=== PATIENT | male | born 1985 | race Caucasian/White ===

== ENCOUNTER 2018-01-05 06:06 | Day surgery (SDC) | payer OTHER ==
[~2018-01-05 06:06] MED LIST: Lactated Ringers 1,000 ML IV SCH; Lidocaine 1%/Sod Bicarbonate in NS 8.4% 1 ML Syringe IV PRN; Sodium Chloride 0.9% 10 ML Syringe FLUSH PRN
[2018-01-05] MEDS ORDERED: Propofol 200 MG/20 ML SDV ONE (06:26)
[2018-01-05] MEDS ORDERED: Ondansetron 4 MG/2 ML SDV ONE (06:26)
[2018-01-05] MEDS ORDERED: Midazolam 1 MG/ML 2 ML SDV ONE (06:27)
[2018-01-05] MEDS ORDERED: Lidocaine 1% 4 ML ONE (06:27)
[2018-01-05] MEDS ORDERED: fentaNYL 250 MCG/5 ML SDV ONE (06:27)
--- NOTE | 2018-01-05 06:34 | PCM.PREANE ---
Preanesthetic Assessment - Anesthesia/Transfusion/Family Hx Anesthesia History: Prior Anesthesia Without Reaction Family History of Anesthesia Reaction: No Transfusion History: No Prior Transfusion(s) - Review of Systems General: No Symptoms Pulmonary: No Symptoms Cardiovascular: No Symptoms Gastrointestinal: No Symptoms Neurological: No Symptoms Other: Reports: None - Physical Assessment NPO Status Date: 01/04/18 NPO Status Time: 00:00 Pulse: 67 O2 Sat by Pulse Oximetry: 99 Respiratory Rate: 16 Blood Pressure: 133/80 Temperature: 36.5 C Height: 1.8 m Weight: 89.584 kg ASA Class: 2 Mental Status: Alert & Oriented x3 Airway Class: Mallampati = 1 Dentition: Reports: Normal Dentition Thyro-Mental Finger Breadths: 3 Mouth Opening Finger Breadths: 3 ROM/Head Extension: Full Lungs: Clear to Auscultation, Normal Respiratory Effort Cardiovascular: Regular Rate, Regular Rhythm - Allergies Allergies/Adverse Reactions: Allergies Allergy/AdvReac Type Severity Reaction Status Date / Time No Known Allergies Allergy Verified 01/04/18 15:10 - Blood Blood Available: No Product(s) Available: None - Anesthesia Plan Pre-Op Medication Ordered: None - Acknowledgements Anesthesia Type Planned: General Anesthesia Pt an Appropriate Candidate for the Planned Anesthesia: Yes Alternatives and Risks of Anesthesia Discussed w Pt/Guardian: Yes Pt/Guardian Understands and Agrees with Anesthesia Plan: Yes PreAnesthesia Questionnaire - Past Health History Medical/Surgical History: Denies Medical/Surgical History Cardiovascular History: Reports: None Respiratory History: Reports: None Gastrointestinal History: Reports: None Genitourinary History: Reports: None APPRENTICE ARCHITECT History: Reports: None Musculoskeletal History: Reports: Other (See Below) Other Musculoskeletal History: wrist surgery, finger fracture, left wrist sacpholumate liganment reconstruction Neurological History: Reports: None Psychiatric History: Reports: Anxiety, Depression Endocrine/Metabolic History: Reports: None Hematologic History: Reports: None Immunologic History: Reports: None Oncologic (Cancer) History: Reports: None Dermatologic History: Reports: Other (See Below) Other Dermatologic History: acne - Past Surgical History Head Surgeries/Procedures: Reports: None HEENT Surgical History: Reports: Oral Surgery Cardiovascular Surgical History: Reports: None Respiratory Surgical History: Reports: None GI Surgical History: Reports: None Female Surgical History: Reports: None Male Surgical History: Reports: None Endocrine Surgical History: Reports: None Neurological Surgical History: Reports: None Oncologic Surgical History: Reports: None - SUBSTANCE USE Smoking Status *Q: Current Every Day Smoker Tobacco Use Within Last Twelve Months: Cigarettes Second Hand Smoke Exposure: No Days Per Week of Alcohol Use: 7 Number of Drinks Per Day: 15 Total Drinks Per Week: 105 Recreational Drug Use History: No Recreational Drug Type: Recreational Drug Last Use: 04/19 - HOME MEDS Home Medications: Home Meds buPROPion [Wellbutrin SR] 150 mg PO Q48H 10/15/15 [History] Acetaminophen [Tylenol Extra Strength] 1,000 mg PO Q6H PRN 01/04/18 [History] Famciclovir [Famciclovir] 250 mg PO BID 01/04/18 [History] Minocycline HCl 100 mg PO DAILY 01/04/18 [History] hydrOXYzine HCl [hydrOXYzine] 25 mg PO TID PRN 01/04/18 [History] - CURRENT (IN HOUSE) MEDS Current Meds: Current Medications Lactated Ringer's (Ringers, Lactated) 1,000 mls @ 125 mls/hr IV ASDIRECTED THOMAS Stop: 01/05/18 23:00 Lidocaine/Sodium Bicarbonate (Buffered Lidocaine 1% In Ns 8.4%) 0.25 ml IV ONETIME PRN PRN Reason: Prior to IV Start Stop: 01/05/18 18:00 Sodium Chloride (Saline Flush) 10 ml FLUSH ASDIRECTED PRN PRN Reason: Keep Vein Open Stop: 01/05/18 18:00 Discontinued Medications Bupivacaine HCl (Marcaine 0.25%) Confirm Administered Dose 30 ml .ROUTE .STK- MED ONE Stop: 01/05/18 06:14 Fentanyl (Sublimaze) Confirm Administered Dose 250 mcg .ROUTE .STK-MED ONE Stop: 01/05/18 06:28 Lidocaine HCl (Xylocaine-Mpf 1%) Confirm Administered Dose 4 mls @ as directed .ROUTE .STK-MED ONE Stop: 01/05/18 06:28 Midazolam HCl (Versed 1 Mg/Ml) Confirm Administered Dose 2 mg .ROUTE .STK-MED ONE Stop: 01/05/18 06:28 Ondansetron HCl (Zofran) Confirm Administered Dose 4 mg .ROUTE .STK-MED ONE Stop: 01/05/18 06:27 Propofol (Diprivan 20 Ml) Confirm Administered Dose 200 mg .ROUTE .[facility]-MED ONE Stop: 01/05/18 06:27
[2018-01-05] MEDS ORDERED: ceFAZolin 1 GM Vial ONE (06:57)
[2018-01-05] MEDS: Bupivacaine 0.25% 30 ML SDV ONE ×2 (07:27→07:50)
[2018-01-05] MEDS ORDERED: Lactated Ringers 1,000 ML ONE (07:31)
[2018-01-05] MEDS ORDERED: Ketorolac 30 MG/ML SDV IVPUSH PRN (08:19)
[2018-01-05] MEDS ORDERED: fentaNYL 100 MCG/2 ML SDV IVPUSH PRN (08:19)
[2018-01-05] MEDS ORDERED: HYDROmorphone 0.5 MG/0.5 ML Syringe IVPUSH PRN (08:19)
--- NOTE | 2018-01-05 08:21 | PCM.POSTAN ---
POST ANESTHESIA ASSESSMENT - MENTAL STATUS Mental Status: Alert, Oriented - VITAL SIGNS Pulse Rate: 106 SaO2: 96 Resp Rate: 16 Blood Pressure: 143/80 Temperature: 37.1 C - RESPIRATORY Respiratory Status: Respiratory Rate WNL, Airway Patent, O2 Saturation Stable, Supplemental Oxygen - CARDIOVASCULAR CV Status: Pulse Rate WNL, Blood Pressure Stable - GASTROINTESTINAL GI Status: No Symptoms - PAIN Pain Score: 4 - POST OP HYDRATION Hydration Status: Adequate & Stable - OBSERVATIONS Free Text/Narrative:: no anesthesia complications noted
--- NOTE | 2018-01-05 08:36 | PCM.OPNOTE ---
- General Post-Op/Procedure Note Date of Surgery/Procedure: 01/05/18 Operative Procedure(s): open reduction internal fixation of left fourth metacarpal shaft fracture Pre Op Diagnosis: closed left fourth metacarpal shaft fracture Post-Op Diagnosis: Same Anesthesia Technique: General LMA, Local Primary Surgeon: Facundo Medeiros Anesthesia Provider: Isreal Murrieta [employer] Delivery: Sofia Crowley EBL in mLs: 5 Complications: None Condition: Good
--- NOTE | 2018-01-05 08:54 | CR ---
Left fourth finger: Ten fluoroscopic spot views were obtained utilizing C-arm device of the fourth metacarpal. Study shows a fracture within the shaft of the metacarpal. Reduction is seen during the study as well as fixation with plate and screws. Soft tissue swelling is noted. Fluoroscopy time given as 28.9 seconds. Impression: 1. Operative study as described above. Diagnostic code #2
--- NOTE | 2018-01-05 09:16 | OR ---
DATE OF OPERATION: 01/05/2018 SURGEON: Facundo Medeiros MD OPERATION PERFORMED: Open reduction and internal fixation of left 4th metacarpal shaft fracture. PREOPERATIVE DIAGNOSIS: Closed left 4th metacarpal shaft fracture. POSTOPERATIVE DIAGNOSIS: Closed left 4th metacarpal shaft fracture. ANESTHESIA: General, LMA with local. ANESTHESIA PROVIDER: Isreal Murrieta CRNA. DELIVERY SPECIALIST: Sofia Crowley PA-C. ESTIMATED BLOOD LOSS: Less than 5 mL. COMPLICATIONS: None. CONDITION: Stable. DESCRIPTION OF PROCEDURE: The patient was identified in the preop holding area. Proper site was marked and identified by the surgeon. The patient was taken back to the operating theater, where after adequate anesthesia, the patient's left upper extremity had a nonsterile tourniquet applied and then was sterilely prepped and draped in the usual sterile fashion. OR time-out was performed. The patient received 2 g IV Ancef. At this time, under C-arm fluoroscopy, it was noted that the fracture had significant displacement with not much excursion to be able to do a closed reduction. The left upper extremity was then exsanguinated. Tourniquet was insufflated to 250 mmHg. A dorsal lateral incision was then made over the ulnar aspect of the left 4th metacarpal. This was taken down and an incision was made to the bone just at the ulnar side of the tendon. At this time, the fracture site was identified. It was curetted and rongeured out of all fracture hematoma. At this time, using C-arm fluoroscopy, a K-wire was used for provisional fixation. A 2.3 mm Temple locking hand plate was then used and placed using C-arm fluoroscopy in the proper position. At this time, a proximal locking screw was then placed. Next a nonlocking proximal screw was placed and a nonlocking distal screw was placed to the fracture. At this time, it was found to have adequate fixation on fluoroscopy, on both AP lateral and oblique views. At this time, 2 more locking screws were placed distally and 1 more was placed proximally. It was found to have adequate fixation of the fracture site at this time with anatomic reduction. Adequate saline was then irrigated through the wound. 3-0 Vicryl was used for closure of the deep muscle fibers over the top of the plate. 3-0 Vicryl was then used for the subcutaneous tissues and 4-0 Monocryl was used for the skin. The patient was placed in a sterile soft dressing and a splint and was sent to PACU in stable condition. MARY /[id number]
[2018-01-05] MEDS ORDERED: Acetaminophen/HYDROcodone 325-5 MG Tab PO PRN (09:25)
[2018-01-05 10:09] VITALS: BP 124/82
== END 2018-01-05 09:50 | disposition home or self-care (01) ==
LOC: JD.SDS 06:06
PROVIDERS: ATTEND Orthopaedic Surgery
DX: S62.325A Displaced fracture of shaft of fourth metacarpal bone, left hand, initial encounter for closed fracture (principal); F17.210 Nicotine dependence, cigarettes, uncomplicated; F41.8 Other specified anxiety disorders; G47.30 Sleep apnea, unspecified; L70.9 Acne, unspecified; X58.XXXA Exposure to other specified factors, initial encounter; Z79.899 Other long term (current) drug therapy
CPT/HCPCS: 26615; 76000; A9270; J0690; J1170; J1885; J2250; J2405; J3010; J3490; J7120; 01820; C1713; C1769; C1776; J2001; J2704

== ENCOUNTER 2022-11-07 20:50 | Emergency (ER) | payer OTHER ==
[2022-11-07 22:04] VITALS: BP 140/73; PULSE 97
[2022-11-07 22:58] LABS: CORONAVIRUS COVID-19 NAA POSITIVE (NEGATIVE)
== END 2022-11-07 23:04 | disposition home or self-care (01) ==
LOC: JD.ED 20:50
DX: U07.1 COVID-19 (principal)
CPT/HCPCS: 0241U; 36415; 85025; 99283

== ENCOUNTER 2023-06-05 09:23 | Day surgery (SDC) | payer OTHER ==
[~2023-06-05 09:23] MED LIST changes: -Lidocaine 1%/Sod Bicarbonate in NS 8.4% 1 ML Syringe IV PRN; +Ropivacaine 0.5% 5 MG/ML 30 ML SDV ONE; +Sodium Chloride 0.9% 10 ML Syringe FLUSH SCH
[2023-06-05] MEDS ORDERED: fentaNYL 100 MCG/2 ML SDV ONE (09:24)
[2023-06-05] MEDS ORDERED: Midazolam 1 MG/ML 2 ML SDV ONE (09:25)
[2023-06-05] MEDS ORDERED: Dexmedetomidine 200 MCG/2 ML SDV ONE (09:25)
[2023-06-05] MEDS ORDERED: Lidocaine 1% 4 ML ONE (09:34)
[2023-06-05] MEDS ORDERED: EPINEPHrine 1 MG/ML SDV ONE (10:10)
[2023-06-05] MEDS ORDERED: Ketamine 500 mg/10 ML MDV ONE (10:49)
[2023-06-05] MEDS ORDERED: Propofol 200 MG/20 ML SDV ONE (10:50)
[2023-06-05] MEDS ORDERED: ceFAZolin 2 GM Vial ONE (10:50)
[2023-06-05] MEDS ORDERED: Bupivacaine 0.25% 10 ML SDV ONE (11:09)
[2023-06-05] MEDS ORDERED: Ondansetron 4 MG/2 ML SDV ONE (11:13)
[2023-06-05] MEDS ORDERED: Dexamethasone 4 MG/ML 5 ML MDV ONE (11:14)
[2023-06-05 13:44] VITALS: BP 129/80; PULSE 78
== END 2023-06-05 13:00 | disposition home or self-care (01) ==
LOC: JD.SDS 09:23
PROVIDERS: ATTEND Orthopaedic Surgery
DX: S86.012A Strain of left Achilles tendon, initial encounter (principal); E78.2 Mixed hyperlipidemia; F41.8 Other specified anxiety disorders; G47.00 Insomnia, unspecified; F17.210 Nicotine dependence, cigarettes, uncomplicated; Z79.82 Long term (current) use of aspirin; Z79.899 Other long term (current) drug therapy; Z98.890 Other specified postprocedural states; Z68.30 Body mass index [BMI] 30.0-30.9, adult; X58.XXXA Exposure to other specified factors, initial encounter
CPT/HCPCS: 27650; 64445; J0171; J0690; J1100; J2250; J2405; J2704; J2795; J3010; J3490; J7120; 01472; 64450

== ENCOUNTER 2024-12-16 17:03 | Emergency (ER) | payer OTHER ==
[2024-12-16 17:46] LABS: BASOPHILS ABSOLUTE AUTO 0.1 K/mm3 (0.0-0.2); BASOPHILS PERCENT AUTO 0.7 % (0.0-1.0); EOSINOPHILS ABSOLUTE AUTO 0.1 K/mm3 (0.0-0.4); EOSINOPHILS PERCENT AUTO 1.7 % (0.0-6.0); HEMATOCRIT 51.4 % (42.0-52.0); HEMOGLOBIN 17.1 gm/dl (14.0-18.0); IMMATURE GRAN ABSOLUTE AUTO 0.11 K/mm3 (0.00-0.05); IMMATURE GRAN PERCENT AUTO 1.3 % (0.0-0.4); LYMPHOCYTES ABSOLUTE AUTO 3.7 K/mm3 (1.0-4.8); LYMPHOCYTES PERCENT AUTO 43.8 % (24.0-44.0); MEAN CORPUSCULAR HEMOGLOBIN 28.1 pg (28.0-32.0); MEAN CORPUSCULAR HGB CONC 33.3 g/dl (32.0-36.0); MEAN CORPUSCULAR VOLUME 84.4 fl (83.0-99.0); MEAN PLATELET VOLUME 9.8 fl (9.4-12.4); MONOCYTES ABSOLUTE AUTO 0.6 K/mm3 (0.0-0.8); MONOCYTES PERCENT AUTO 7.2 % (0.0-8.0); NEUTROPHILS ABSOLUTE AUTO 3.8 K/mm3 (1.8-7.7); NEUTROPHILS PERCENT AUTO 45.3 % (41.0-71.0); PLATELET COUNT,PLT 236 K/mm3 (150-400); RED BLOOD CELL COUNT 6.09 M/mm3 (4.52-5.90); WHITE BLOOD CELL COUNT,WBC 8.47 K/mm3 (3.9-11.3)
[2024-12-16 17:58] LABS: A/G RATIO 1.7 (1-2); ALANINE AMINOTRANSFERASE,ALT 51 U/L (16-63); ALBUMIN 4.5 g/dl (3.4-5.0); ALKALINE PHOSPHATASE 62 U/L (46-116); ANION GAP 13.2 (5-15); ASPARTATE AMNIOTRANSFERASE,AST 23 U/L (15-37); BILIRUBIN TOTAL 0.9 mg/dL (0.2-1.0); BLOOD UREA NITROGEN,BUN 17 mg/dL (7-18); BUN/CREATININE RATIO 14.2 (14-18); CALCIUM 8.8 mg/dL (8.5-10.1); CARBON DIOXIDE,CO2 28 mEq/L (21-32); CHLORIDE,CL 102 mEq/L (98-107); CREATININE 1.2 mg/dL (0.7-1.3); EST CRCL DRUG DOSING (CG) 83.65 mL/min; ESTIMATED GFR 78 mL/min (>60); GLUCOSE RANDOM 89 mg/dL (70-99); MAGNESIUM 2.1 mg/dL (1.8-2.4); POTASSIUM,K 4.2 mEq/L (3.5-5.1); PROTEIN TOTAL,TP 7.2 g/dl (6.4-8.2); SODIUM,NA 139 mEq/L (136-145)
[2024-12-16 18:15] LABS: TROPONIN I HIGH SENSITIVITY < 4 pg/mL (<=76)
[2024-12-16] MEDS: Aspirin 81 MG Tab.Chew PO ONE (19:10)
[2024-12-16 19:43] VITALS: BP 148/80; PULSE 72
== END 2024-12-16 19:24 | disposition home or self-care (01) ==
LOC: JD.ED 17:03
DX: R07.89 Other chest pain (principal); Z79.82 Long term (current) use of aspirin; Z79.899 Other long term (current) drug therapy
CPT/HCPCS: 36415; 71045; 80053; 83735; 84484; 85025; 85379; 93005; 99285; A9270